=== PATIENT | male | born 1960 | race Caucasian/White ===

== ENCOUNTER 2024-07-29 16:12 | Emergency (ER) | payer MEDICAID ==
[~2024-07-29] VITALS: Ht 172.7 cm; Wt 85.0 kg
[2024-07-29 16:21] VITALS: O2SAT 99
[2024-07-29] MEDS ORDERED: ACET-2708 MT (18:20)
[2024-07-29 18:43] VITALS: BP 137/82; PULSE 79; RESP 18; TEMP 37.1; O2SAT 100
[2024-07-29] MEDS: KETOROLAC 30MG/ML VIAL IM ONE (18:43)
== END 2024-07-29 18:47 | disposition home or self-care (01) ==
LOC: ER 16:12
DX: M25.512 Pain in left shoulder (principal); E11.9 Type 2 diabetes mellitus without complications; I10 Essential (primary) hypertension; Z88.0 Allergy status to penicillin
CPT/HCPCS: 73030; 96372; 99283; J1885; Z7610; A6449; A4565